=== PATIENT | female | born 1970 | race Caucasian/White ===

== ENCOUNTER 2019-11-19 17:02 | Outpatient (CLI) | payer SELFPAY ==
[2019-11-19 17:40] LABS: Basophils # 0.1 10^3/uL (0.0-0.1); Basophils % 0.9 %; Eosinophils # 0.1 10^3/uL (0.0-0.8); Eosinophils % 1.6 %; Hematocrit 26.1 % (37.0-47.0); Lymphocytes # 1.7 10^3/uL (0.8-4.8); Lymphocytes % 24.3 %; Mean Corpuscular HGB Conc 24.9 g/dL (30.0-36.0); Mean Corpuscular Hemoglobin 16.9 pg (28.0-34.0); Mean Platelet Volume 10.2 fL (7.4-10.4); Monocytes # 0.6 10^3/uL (0.2-0.9); Monocytes % 9.2 %; Neutrophils # 4.4 10^3/uL (1.8-7.7); Neutrophils % 63.9 %; Nucleated Red Blood Cells % 0 %; Platelet Count 578 10^3/cmm (130-400); Red Blood Count 3.84 10^6/uL (4.1-5.3); Red Cell Distribution Width 20.2 % (12.1-15.1); White Blood Count 6.8 10^3/uL (4.0-10.0)
[2019-11-19 19:00] LABS: Hemoglobin 6.5 g/dL (11.5-15.3)
[2019-11-26 14:32] LABS: Pap Source Cervix
== END 2019-11-19 17:03 | disposition home or self-care (01) ==
LOC: LAB 17:11
PROVIDERS: Family Provider Nurse Practitioner; PCP Nurse Practitioner; Visit Provider Nurse Practitioner Family
DX: Z12.4 Encounter for screening for malignant neoplasm of cervix (principal); N92.0 Excessive and frequent menstruation with regular cycle
CPT/HCPCS: 85025; 88175

== ENCOUNTER 2019-11-23 07:54 | Day surgery (SDC) | payer SELFPAY ==
--- NOTE | 2019-11-21 10:15 | PC.NURSE ---
Patient ambulated to the floor without difficulty. Patient is A&Ox3. Respirations even and non-labored on room air. Patient states, I will be out of here by 4 o'clock right? I have to pick my dog up from the vet. Normally my would do it be he is out of town. Explained to patient that it could take up to 8 hours to receive two units of blood. Patient states, I can not stay here that long can I come back tomorrow? Explained to the patient that I will need to talk to the Dr to make sure. Patient verbalized understanding. Patient voided at this time. Patient resting in bed and will wait for a return call from the Dr. Blood Pressure 146/81 Respirations 18 Temperature 98.1 Oxygen level 100% Patient denies any pain at this time.
--- NOTE | 2019-11-21 10:30 | PC.NURSE ---
[facility] placed [facility] and call placed to Dr. Doyle - .
--- NOTE | 2019-11-21 10:50 | PC.NURSE ---
Spoke with Dr. Doyle about patient wanting to leave and come back tomorrow because she does not have anyone to pick her dog up from the vet and can not stay here for up to [address] Doyle stated that as long as she had the other labs drawn today she could leave and come back tomorrow to receive the blood.
--- NOTE | 2019-11-21 10:58 | PC.NURSE ---
Lab at bedside to complete labs that were ordered yesterday and the type and screen for patient to receive blood tomorrow.
--- NOTE | 2019-11-21 11:00 | PC.NURSE ---
Patient discharged at this time to returned tomorrow for her blood transfusion. Patient is A&Ox3. Respirations even and non-labored on room air. Patient ambulated from the Med-surgical floor to her car without difficulty. Blood Pressure 140/80 Respirations 18 Temperature 98.1 Oxygen level 100% Patient denies any pain at this time.
[2019-11-21 14:28] LABS: Ferritin 7 ng/mL (15-150); Iron 344 ug/dL (37-145); Percent Saturation 86.8 % (20-50); Total Iron Binding Capacity 396 mcg/dl; Unsaturated Iron Binding 52 ug/dL (112-347)
[2019-11-23] VITALS (12 sets, daily range): BP systolic 135–175; BP diastolic 78–92; PULSE 84–100; RESP 17–19; TEMP 36.3–37.1; O2SAT 97–100
[2019-11-24 15:11] LABS: Erythropoietin 152.8 mIU/mL (2.6-18.5)
== END 2019-11-23 14:28 | disposition home or self-care (01) ==
LOC: OPS 11-26 10:42 → MEDSURG 11-26 10:43
PROVIDERS: PCP Nurse Practitioner Family; Visit Provider Obstetrics & Gynecology
DX: D64.9 Anemia, unspecified (principal)
CPT/HCPCS: 36430; 82668; 82728; 83540; 83550; 86140; 86850; 86900; 86920; P9016

== ENCOUNTER 2019-12-03 16:24 | Outpatient (CLI) | payer SELFPAY ==
[2019-12-03 18:05] LABS: Basophils # 0.1 10^3/uL (0.0-0.1); Eosinophils # 0.1 10^3/uL (0.0-0.8); Eosinophils % 1.1 %; Hematocrit 38.7 % (37.0-47.0); Hemoglobin 10.8 g/dL (11.5-15.3); Lymphocytes # 1.8 10^3/uL (0.8-4.8); Lymphocytes % 24.6 %; Mean Corpuscular HGB Conc 27.9 g/dL (30.0-36.0); Mean Corpuscular Hemoglobin 21.4 pg (28.0-34.0); Mean Corpuscular Volume 76.6 fL (81-99); Mean Platelet Volume 10.8 fL (7.4-10.4); Monocytes # 0.6 10^3/uL (0.2-0.9); Monocytes % 8.2 %; Neutrophils # 4.8 10^3/uL (1.8-7.7); Neutrophils % 64.8 %; Nucleated Red Blood Cells % 0 %; Platelet Count 369 10^3/cmm (130-400); Red Blood Count 5.05 10^6/uL (4.1-5.3); Red Cell Distribution Width 27.5 % (12.1-15.1); White Blood Count 7.4 10^3/uL (4.0-10.0)
== END 2019-12-03 16:25 | disposition home or self-care (01) ==
LOC: LAB 16:26
PROVIDERS: PCP Nurse Practitioner Family; Visit Provider Nurse Practitioner Family
DX: N92.0 Excessive and frequent menstruation with regular cycle (principal)
CPT/HCPCS: 85025

== ENCOUNTER 2019-12-15 15:51 | Outpatient (CLI) | payer SELFPAY ==
[2019-12-15 16:19] LABS: Basophils # 0.1 10^3/uL (0.0-0.1); Basophils % 0.7 %; Eosinophils # 0.1 10^3/uL (0.0-0.8); Eosinophils % 0.7 %; Lymphocytes # 2.7 10^3/uL (0.8-4.8); Lymphocytes % 31.3 %; Mean Corpuscular HGB Conc 29.3 g/dL (30.0-36.0); Mean Corpuscular Hemoglobin 23.3 pg (28.0-34.0); Mean Corpuscular Volume 79.5 fL (81-99); Mean Platelet Volume 11.1 fL (7.4-10.4); Monocytes # 0.5 10^3/uL (0.2-0.9); Neutrophils # 5.2 10^3/uL (1.8-7.7); Neutrophils % 61.1 %; Nucleated Red Blood Cells % 0 %; Platelet Count 413 10^3/cmm (130-400); Red Blood Count 5.16 10^6/uL (4.1-5.3); Red Cell Distribution Width 29.1 % (12.1-15.1); White Blood Count 8.5 10^3/uL (4.0-10.0)
== END 2019-12-15 15:52 | disposition home or self-care (01) ==
LOC: LAB 15:53
PROVIDERS: PCP Nurse Practitioner Family; Visit Provider Nurse Practitioner Family
DX: D50.0 Iron deficiency anemia secondary to blood loss (chronic) (principal)
CPT/HCPCS: 85025

== ENCOUNTER 2020-01-15 15:40 | Outpatient (CLI) | payer SELFPAY ==
[2020-01-15 16:55] LABS: Basophils # 0.1 10^3/uL (0.0-0.1); Basophils % 0.7 %; Eosinophils # 0.2 10^3/uL (0.0-0.8); Eosinophils % 2.2 %; Hematocrit 39.5 % (37.0-47.0); Hemoglobin 12.6 g/dL (11.5-15.3); Lymphocytes # 1.9 10^3/uL (0.8-4.8); Lymphocytes % 21.6 %; Mean Corpuscular HGB Conc 31.9 g/dL (30.0-36.0); Mean Corpuscular Hemoglobin 27.5 pg (28.0-34.0); Mean Corpuscular Volume 86.2 fL (81-99); Monocytes # 0.7 10^3/uL (0.2-0.9); Monocytes % 7.9 %; Neutrophils # 5.94 10^3/uL (1.8-7.7); Neutrophils % 67.4 %; Nucleated Red Blood Cells % 0 %; Platelet Count 306 10^3/cmm (130-400); Red Blood Count 4.58 10^6/uL (4.1-5.3); Red Cell Distribution Width 25.3 % (12.1-15.1); White Blood Count 8.8 10^3/uL (4.0-10.0)
[2020-01-15 18:59] LABS: Slide Review Slide Review Perform
== END 2020-01-15 15:41 | disposition home or self-care (01) ==
LOC: LAB 15:42
PROVIDERS: PCP Nurse Practitioner Family; Visit Provider Nurse Practitioner Family
DX: D50.0 Iron deficiency anemia secondary to blood loss (chronic) (principal)
CPT/HCPCS: 85025

== ENCOUNTER → 2021-04-20 13:28 | Outpatient (BNVA) | payer SELFPAY | PROVIDERS: PCP Nurse Practitioner Family; Visit Provider Family Medicine Adult Medicine | DX: I10 Essential (primary) hypertension (principal); E66.9 Obesity, unspecified; D50.9 Iron deficiency anemia, unspecified; Z78.9 Other specified health status; Z71.89 Other specified counseling | CPT/HCPCS: 80053; 83036; 84443; 85025 ==

== ENCOUNTER → 2022-03-07 13:53 | Outpatient (BNVA) | payer SELFPAY | PROVIDERS: Visit Provider Registered Nurse Neonatal Intensive Care | DX: N39.0 Urinary tract infection, site not specified (principal); R31.9 Hematuria, unspecified | CPT/HCPCS: 81000 ==

== ENCOUNTER → 2022-06-20 13:03 | Outpatient (BNVA) | payer BC, MEDICAID, SELFPAY | PROVIDERS: PCP Family Medicine Adult Medicine; Visit Provider Nurse Practitioner Family | DX: J02.9 Acute pharyngitis, unspecified (principal); J03.90 Acute tonsillitis, unspecified | CPT/HCPCS: 87071; 87880 ==

== ENCOUNTER → 2022-07-17 10:31 | Outpatient (BNVA) | payer BC, MEDICAID, SELFPAY | PROVIDERS: PCP Family Medicine Adult Medicine; Visit Provider Podiatrist Foot & Ankle Surgery | DX: M72.2 Plantar fascial fibromatosis (principal); M19.071 Primary osteoarthritis, right ankle and foot; M76.71 Peroneal tendinitis, right leg | CPT/HCPCS: 73630 ==

== ENCOUNTER → 2022-08-17 14:56 | Outpatient (BNVA) | payer BC, MEDICAID, SELFPAY | PROVIDERS: PCP Family Medicine Adult Medicine; Visit Provider Family Medicine Adult Medicine | DX: I10 Essential (primary) hypertension (principal); D50.9 Iron deficiency anemia, unspecified | CPT/HCPCS: 80053; 80061; 84443; 85025 ==

== ENCOUNTER → 2022-09-21 14:14 | Outpatient (BNVA) | payer BC, MEDICAID, SELFPAY | PROVIDERS: PCP Family Medicine Adult Medicine; Visit Provider Obstetrics & Gynecology | DX: R58 Hemorrhage, not elsewhere classified (principal); N85.2 Hypertrophy of uterus; Z79.899 Other long term (current) drug therapy | CPT/HCPCS: 76830; 84443; 85025 ==